=== PATIENT | male | born 1970 | race Two or more races ===

== ENCOUNTER 2017-06-10 18:22 | Emergency (ER) | payer MEDICAID ==
[~2017-06-10] VITALS: Ht 193 cm; Wt 81.6 kg
[2017-06-10] MEDS ORDERED: Vancomycin 1.5gm/D5W 250ml 250 ML IVPB ONE (18:45)
[2017-06-10 19:00] VITALS: BP 153/62
[2017-06-10] MEDS ORDERED: Morphine Sulfate 4mg/ml Inj IVP ONE (20:00)
[2017-06-10 20:04] LABS: BASOPHILS % (AUTO) 0.5 % (0.0-2.0); EOSINOPHILS % (AUTO) 4.6 % (0.0-3.0); HEMATOCRIT 31.2 % (42.0-52.0); LYMPHOCYTES % (AUTO) 17.4 % (20.0-45.0); MEAN CORPUSCULAR VOLUME 76 FL (80-99); MONOCYTES % (AUTO) 6.1 % (1.0-10.0); NEUTROPHILS % (AUTO) 71.3 % (45.0-75.0); PLATELET COUNT 463 K/UL (150-450); RED BLOOD COUNT 4.11 M/UL (4.70-6.10); RED CELL DISTRIBUTION WIDTH 14.3 % (11.6-14.8); WHITE BLOOD COUNT 9.6 K/UL (4.8-10.8)
[2017-06-10 20:17] LABS: ALANINE AMINOTRANSFERASE 16 U/L (12-78); ALBUMIN 2.7 G/DL (3.4-5.0); ALBUMIN/GLOBULIN RATIO 0.5 (1.0-2.7); ALKALINE PHOSPHATASE 124 U/L (46-116); ANION GAP 11 mmol/L (5-15); ASPARTATE AMINO TRANSFERASE 14 U/L (15-37); BILIRUBIN,TOTAL 0.5 MG/DL (0.2-1.0); CALCIUM 8.9 MG/DL (8.5-10.1); CARBON DIOXIDE 24 MMOL/L (21-32); CHLORIDE 103 MMOL/L (98-107); CREATININE 1.3 MG/DL (0.55-1.30); POTASSIUM 3.7 MMOL/L (3.5-5.1); SODIUM 138 MMOL/L (136-145)
[2017-06-10 20:18] LABS: BLOOD UREA NITROGEN 28 mg/dL (7-18)
[2017-06-10 20:32] VITALS: BP 139/60
[2017-06-10] MEDS ORDERED: AUGMENTIN 875-1 EAC1 ORAL (21:04)
[2017-06-10] MEDS ORDERED: ACETAMINOPHEN-1 EAC1 ORAL (21:04)
[2017-06-10 22:20] VITALS: BP 152/75
[2017-06-10 22:33] VITALS: BP 152/75
--- NOTE | 2017-06-12 22:31 | Emergency Room Report ---
History of Present Illness General Chief Complaint: Pain Source: Patient Present Illness HPI 46-year-old male presents ED for evaluation. Patient presents complaining of right foot pain. States he had his fifth toe amputated on his right foot 2 weeks ago in [place]. History of diabetes. States there is pain and swelling to his right leg. Throbbing, 10 out of 10, nonradiating. Denies fevers or chills. Denies any drainage. No other aggravating relieving factors. Denies any other associated symptom Allergies: Coded Allergies: No Known Allergies (Unverified , 06/10/17) Patient History Past Medical History: DM Past Surgical History: other - L BKA Pertinent Family History: none Social History: Denies: smoking, alcohol use, drug use Immunizations: UTD Reviewed Nursing Documentation: PMH: Agreed, PSxH: Agreed Nursing Documentation-PMH Hx Hypertension: Yes Hx Diabetes: Yes Review of Systems All Other Systems: negative except mentioned in HPI Physical Exam Vital Signs Date Time Temp Pulse Resp B/P (MAP) Pulse Ox O2 Delivery O2 Flow Rate FiO2 06/10/17 18:18 98.7 80 16 153/62 98 Room Air 98.8 Sp02 EP Interpretation: reviewed, normal General Appearance: no apparent distress, alert, GCS 15, non-toxic Head: normocephalic Eyes: bilateral eye normal inspection, bilateral eye PERRL ENT: normal ENT inspection Neck: normal inspection Respiratory: chest non-tender, lungs clear, normal breath sounds, speaking full sentences Cardiovascular #1: regular rate, rhythm, no edema Gastrointestinal: normal bowel sounds, non tender, soft, non-distended, no guarding, no rebound Rectal: deferred Genitourinary: no CVA tenderness Musculoskeletal: tender - R foot. s/p 5th toe amputation. wound C/D/I. no drainage Neurologic: alert, oriented x3, responsive, motor strength/tone normal, sensory intact, speech normal Psychiatric: normal inspection Skin: other - s/p R 5th toe amputation Lymphatic: normal inspection Medical Decision Making Diagnostic Impression: Primary Impression: Postoperative pain ER Course Hospital Course 46-year-old male presents to ED with pain/swelling to RLE. s/p toe amputation Differential diagnoses include: Cellulitis, DVT, abscess, rash. Clinical course Patient placed on stretcher. After initial history and physical I ordered labs , blood Cx, UA, IVFs, doppler US of RLE labs reviewed - no leukocytosis, Hb/Hct stable, no electrolyte abnormalities. Doppler US - no evidence of DVT antibiotics given. Wound appears clean and dry. Cleaned and irrigated and dressing applied. Given antibiotics here. Patient is non-febrile, nontoxic. Given negative workup patient be safely discharged to home Diagnosis - postoperative pain stable and discharged to home with Rx antibiotics, pain meds. f/up with PMD. return to ED if symptoms recur/worsen Labs Test 06/10/17 19:45 White Blood Count 9.6 K/UL (4.8-10.8) Red Blood Count 4.11 M/UL (4.70-6.10) Hemoglobin 10.0 G/DL (14.2-18.0) Hematocrit 31.2 % (42.0-52.0) Mean Corpuscular Volume 76 FL (80-99) Mean Corpuscular Hemoglobin 24.4 PG (27.0-31.0) Mean Corpuscular Hemoglobin Concent 32.1 G/DL (32.0-36.0) Red Cell Distribution Width 14.3 % (11.6-14.8) Platelet Count 463 K/UL (150-450) Mean Platelet Volume 5.6 FL (6.5-10.1) Neutrophils (%) (Auto) 71.3 % (45.0-75.0) Lymphocytes (%) (Auto) 17.4 % (20.0-45.0) Monocytes (%) (Auto) 6.1 % (1.0-10.0) Eosinophils (%) (Auto) 4.6 % (0.0-3.0) Basophils (%) (Auto) 0.5 % (0.0-2.0) Sodium Level 138 MMOL/L (136-145) Potassium Level 3.7 MMOL/L (3.5-5.1) Chloride Level 103 MMOL/L (98-107) Carbon Dioxide Level 24 MMOL/L (21-32) Anion Gap 11 mmol/L (5-15) Blood Urea Nitrogen 28 mg/dL (7-18) Creatinine 1.3 MG/DL (0.55-1.30) Estimat Glomerular Filtration Rate 59.4 mL/min (>60) Glucose Level 167 MG/DL (74-106) Lactic Acid Level 2.20 mmol/L (0.66-2.22) Calcium Level 8.9 MG/DL (8.5-10.1) Total Bilirubin 0.5 MG/DL (0.2-1.0) Aspartate Amino Transf (AST/SGOT) 14 U/L (15-37) Alanine Aminotransferase (ALT/SGPT) 16 U/L (12-78) Alkaline Phosphatase 124 U/L (46-116) Total Protein 7.7 G/DL (6.4-8.2) Albumin 2.7 G/DL (3.4-5.0) Globulin 5.0 g/dL Albumin/Globulin Ratio 0.5 (1.0-2.7) CT/MRI/US Diagnostic Results CT/MRI/US Diagnostic Results : Imaging Test Ordered: Doppler US RLE Impression no DVT Last Vital Signs Date Time Temp Pulse Resp B/P (MAP) Pulse Ox O2 Delivery O2 Flow Rate FiO2 06/10/17 22:33 98.8 74 19 152/75 98 Room Air 209.8 Status: improved Disposition: HOME, SELF-CARE Condition: Stable Scripts Acetaminophen With Codeine (T#3) (TYLENOL #3 TAB*) Y Tab 1 TAB ORAL Q8H Y for For Pain, #20 TAB Prov: OSMAN GUZMAN M.D. 06/10/17 Amoxicillin/Potassium Clav 875-125* (AUGMENTIN 875-125 TABLET*) 1 Each Tablet 1 TAB ORAL TWICE A DAY, #14 TAB Prov: OSMAN GUZMAN M.D. 06/10/17 Referrals: NOT CHOSEN [facility]/,REFERRING (PCP) Patient Instructions: How to Avoid Diabetes Problems OSMAN GUZMAN M.D. Jun 12, 2017 22:31
--- NOTE | 2017-06-18 22:03 | Diagnostic Imaging Report ---
APPROVED REPORT CPT Code: 95476 Present Symptoms Comments: R/O DVT RIGHT LEG: Venous imaging reveals a patent deep venous system. There is no evidence of thrombus within the femoral, popliteal or tibial segments. The greater saphenous vein is also within normal limits. Doppler indicates normal spontaneous flow within these segments.
== END 2017-06-10 22:35 | disposition home or self-care (01) ==
LOC: EDBD 18:22 → EMR 22:22
DX: M79.671 Pain in right foot (principal); E11.9 Type 2 diabetes mellitus without complications; I10 Essential (primary) hypertension
CPT/HCPCS: 36415; 80053; 83605; 85025; 87040; 93971; 96374; 99284; J2270; J3370